=== PATIENT | male | born 1990 | race African-American/Black ===

== ENCOUNTER 2016-09-25 18:21 | Emergency (ER) | payer OTHER ==
[2016-09-25] MEDS ORDERED: cefTRIAXone SOD 1 GM VIAL (J0696) As Ordered ONE (19:28)
[2016-09-25] MEDS ORDERED: LIDOCAINE 1% MDV 20ML VIAL As Ordered ONE (19:28)
[2016-09-25] MEDS ORDERED: AZITHROMYCIN 250 MG TAB As Ordered ONE (19:28)
--- NOTE | 2016-09-25 20:01 | EDDOCDS ---
Physician Documentation [facility] Name: Damien Edge Age: 26 yrs Sex: Male : 1990 Arrival Date: 09/25/2016 Time: 18:21 Bed TR1 Private MD: [facility] Disposition: 09/25/16 19:32 Discharged to Home/Self Care. Impression: Unspecified sexually transmitted disease - Prophylaxis. - Condition is Stable. - Discharge Instructions: Sexually Transmitted Disease. - Medication Reconciliation, Local Pharmacy Hours form. - Follow up: [facility]; When: 2 - 3 days; Reason: Continuance of care. Follow up: Emergency Department; When: As needed; Reason: Worsening of conditions. - Problem is new. - Symptoms are unchanged. Historical: - Allergies: no known allergies; - Home Meds: 1. none - PMHx: none; - PSHx: Ankle Arthroplasty, Right; - Social history: Smoking status: Patient uses tobacco products, current some day smoker. No barriers to communication noted, The patient speaks fluent Kyrgyz. - Family history: Not pertinent. - : The pt / caregiver states he / she is not on anticoagulants. Home medication list is obtained from the patient. - Exposure Risk Screening:: None identified. Vital Signs: 09/25 18:22 BP 145 / 69 RA Sitting (auto/lg); Pulse 72; Resp 18; Temp 96.9(O); Pulse Ox 99% on R/A; rs6 Weight 81.19 kg / 178.99 lbs (R); Height 5 ft. 10 in. (177.80 cm) (R); Pain 0/10; 19:58 BP 126 / 67; Pulse 69; Resp 16; Temp 96.6(T); cz 18:22 Body Mass Index 25.68 (81.19 kg, 177.80 cm) rs6 MDM: 19:24 cefTRIAXone 500 mg IM once ordered. dk1 19:24 azithromycin 1 grams PO once ordered. dk1 19:26 GC & Chlamydia Amplification Ordered. EDMS 19:59 Financial registration complete. zo 20:00 [facility] Payment Agreement was scanned into [employer] and attached to record. zo Administered Medications: 19:38 Drug: cefTRIAXone 500 mg [ceftriaxone 1 gram solution for injection (500 mg)] Route: cz IM; Site: right gluteus; 19:38 Drug: azithromycin 1 grams [azithromycin 250 mg tablet (4 tabs)] Route: PO; cz Signatures: Dispatcher [employer] Chris Veliz RN RN cz Zach Castro PA-C PA-C dk1 Yumiko Tobar Mallory, RN RN ms18 The chart was reviewed and I authenticate all verbal orders and agree with the evaluation and treatment provided.Attachments: 20:00 [facility] Payment Agreement zo MTDD
--- NOTE | 2016-09-25 20:01 | EDDOCDS ---
Nurse's Notes [facility] Name: Damien Edge Age: 26 yrs Sex: Male : 1990 Arrival Date: 09/25/2016 Time: 18:21 Bed TR1 Private MD: NENayeli ARNOLD Diagnosis: Unspecified sexually transmitted disease-Prophylaxis Presentation: 09/25 18:27 Presenting complaint: Patient states: that he thinks he was exposed to and STD and ms18 wants to be checked. Adult Sepsis Screening: The patient does not have new or worsening altered mentation. Patient's respiratory rate is less than 22. Systolic blood pressure is greater than 100. Patient has a qSOFA score of 0- Negative Sepsis Screen. Suicide/Homicide risk assessment- the patient denies having any suicidal and/or homicidal ideations and does not present with any other emotional, behavioral or mental health complaints. 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 Transition of care: patient was not received from another setting of care. 18:27 Acuity: KOREY Level 4 ms18 18:27 Method Of Arrival: Walkin/Carried/Asstd ms18 Triage Assessment: 18:28 General: Appears in no apparent distress, comfortable, Behavior is appropriate for age, ms18 cooperative. Pain: Denies pain. HIV screening NA for this visit Offered previously. Neurological: No deficits noted. Respiratory: No deficits noted. : Denies burning with urination, discharge. Derm: Skin is pink, warm & dry. Historical: - Allergies: no known allergies; - Home Meds: 1. none - PMHx: none; - PSHx: Ankle Arthroplasty, Right; - Social history: Smoking status: Patient uses tobacco products, current some day smoker. No barriers to communication noted, The patient speaks fluent Uzbek. - Family history: Not pertinent. - : The pt / caregiver states he / she is not on anticoagulants. Home medication list is obtained from the patient. - Exposure Risk Screening:: None identified. Screenin:59 Screening information is obtained from the patient. Fall risk: No risks identified. cz Assistance ADL's: requires no assistance with activities of daily living. Abuse/DV Screen: The patient / caregiver reports he/she is: not in a situation that causes fear, pain or injury. Nutritional screening: No deficits noted. Advance Directives: Currently, there is no health care proxy. There is no active DNR order. There is no living will. There is no Power of Rim Turning Machine Operator. Advance directive information has not previously been placed in an [facility] medical record. home support is adequate. Assessment: 19:59 Reassessment: Patient appears in no apparent distress at this time. General: Appears in cz no apparent distress. Vital Signs: 18:22 BP 145 / 69 RA Sitting (auto/lg); Pulse 72; Resp 18; Temp 96.9(O); Pulse Ox 99% on R/A; rs6 Weight 81.19 kg (R); Height 5 ft. 10 in. (177.80 cm) (R); Pain 0/10; 19:58 BP 126 / 67; Pulse 69; Resp 16; Temp 96.6(T); cz 18:22 Body Mass Index 25.68 (81.19 kg, 177.80 cm) rs6 Vitals: 18:22 Log In Time: September 25, 2016 at 18:19. rs6 ED Course: 18:22 Patient visited by Reva Ordoñez PCA. rs6 18:22 [facility] is Private Physician. rs6 18:22 Patient moved to Waiting rs6 18:23 Patient visited by Reva Ordoñez PCA. rs6 18:23 Patient moved to Pre RCE rs6 18:27 Triage Initiated ms18 19:17 Patient moved to Triage 1 jb5 19:21 [facility] dk[facility] 19:21 Mark James DO is Attending Physician. dk1 19:21 Patient visited by Zach Castro PA-C. dk1 19:29 GC & Chlamydia Amplification Sent. ttb 19:32 [facility] is Referral Physician. dk1 19:34 Patient moved to PR2 / 26 cz 19:58 Patient moved to TR1 cz 19:59 The patient / caregiver is instructed regarding the plan of care and ED course. cz 19:59 No IV's were initiated during this patient's visit. No procedures done that require cz assistance. 20:00 [facility] Payment Agreement was scanned into [employer] and attached to record. zo Administered Medications: 19:38 Drug: cefTRIAXone 500 mg [ceftriaxone 1 gram solution for injection (500 mg)] Route: cz IM; Site: right gluteus; 19:38 Drug: azithromycin 1 grams [azithromycin 250 mg tablet (4 tabs)] Route: PO; cz Order Results: There are currently no results for this order. Outcome: 19:32 Discharge ordered by Provider. dk1 19:59 Discharge Assessment: Patient awake, alert and oriented x 3. No cognitive and/or cz functional deficits noted. Patient verbalized understanding of disposition instructions. patient administered narcotics - no. The following High Risk Discharge criteria are identified: None. Discharged to home ambulatory. Condition: stable. Discharge instructions given to patient, Instructed on discharge instructions, follow up and referral plans. Demonstrated understanding of instructions, Pt was receptive of discharge instructions/ teaching. No special radiology studies were completed. Property :Personal belongings accompany Pt. 20:00 Patient left the ED. cz Signatures: Chris Quintero, LATESHA RN Christina Lam, DYNAMICS AX SOLUTION ARCHITECT DYNAMICS AX SOLUTION ARCHITECT jb5 Zach Castro, PAHelen PA-C dk1 Yumiko Tobar Teresa, RN RN ttb Smith, Mallory, RN RN ms18 Reva Ordoñez, DYNAMICS AX SOLUTION ARCHITECT DYNAMICS AX SOLUTION ARCHITECT rs6 MTDD
--- NOTE | 2016-09-25 21:11 | EDDOCDS ---
Physician Documentation [facility] Name: Damien Edge Age: 26 yrs Sex: Male : 1990 Arrival Date: 09/25/2016 Time: 18:21 Bed TR1 Private MD: [facility] Disposition: 09/25/16 19:32 Discharged to Home/Self Care. Impression: Unspecified sexually transmitted disease - Prophylaxis. - Condition is Stable. - Discharge Instructions: Sexually Transmitted Disease. - Medication Reconciliation, Local Pharmacy Hours form. - Follow up: [facility]; When: 2 - 3 days; Reason: Continuance of care. Follow up: Emergency Department; When: As needed; Reason: Worsening of conditions. - Problem is new. - Symptoms are unchanged. Historical: - Allergies: no known allergies; - Home Meds: 1. none - PMHx: none; - PSHx: Ankle Arthroplasty, Right; - Social history: Smoking status: Patient uses tobacco products, current some day smoker. No barriers to communication noted, The patient speaks fluent Pashto. - Family history: Not pertinent. - : The pt / caregiver states he / she is not on anticoagulants. Home medication list is obtained from the patient. - Exposure Risk Screening:: None identified. Vital Signs: 09/25 18:22 BP 145 / 69 RA Sitting (auto/lg); Pulse 72; Resp 18; Temp 96.9(O); Pulse Ox 99% on R/A; rs6 Weight 81.19 kg / 178.99 lbs (R); Height 5 ft. 10 in. (177.80 cm) (R); Pain 0/10; 19:58 BP 126 / 67; Pulse 69; Resp 16; Temp 96.6(T); cz 18:22 Body Mass Index 25.68 (81.19 kg, 177.80 cm) rs6 MDM: 19:24 cefTRIAXone 500 mg IM once ordered. dk1 19:24 azithromycin 1 grams PO once ordered. dk1 19:26 GC & Chlamydia Amplification Ordered. EDMS 19:59 Financial registration complete. zo 20:00 [facility] Agreement was scanned into [employer] and attached to record. zo Administered Medications: 19:38 Drug: cefTRIAXone 500 mg [ceftriaxone 1 gram solution for injection (500 mg)] Route: cz IM; Site: right gluteus; 19:38 Drug: azithromycin 1 grams [azithromycin 250 mg tablet (4 tabs)] Route: PO; cz Signatures: Dispatcher MedHost EDChris Barrientos, LATESHA RN cz Hamlet Hernandes, Aerospace Products Sales Engineer Unit ml3 Zach Castro PA-C PAHelen dk1 Yumiko Tobar Mallory, RN RN ms18 The chart was reviewed and I authenticate all verbal orders and agree with the evaluation and treatment provided.Attachments: 20:00 [facility] Agreement zo MTDD
--- NOTE | 2016-09-25 21:11 | EDDOCDS ---
Nurse's Notes [facility] Name: Damien Edge Age: 26 yrs Sex: Male : 1990 Arrival Date: 09/25/2016 Time: 18:21 Bed TR1 Private MD: VTNayeli ARNOLD Diagnosis: Unspecified sexually transmitted disease-Prophylaxis Presentation: 09/25 18:27 Presenting complaint: Patient states: that he thinks he was exposed to and STD and ms18 wants to be checked. Adult Sepsis Screening: The patient does not have new or worsening altered mentation. Patient's respiratory rate is less than 22. Systolic blood pressure is greater than 100. Patient has a qSOFA score of 0- Negative Sepsis Screen. Suicide/Homicide risk assessment- the patient denies having any suicidal and/or homicidal ideations and does not present with any other emotional, behavioral or mental health complaints. 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 Transition of care: patient was not received from another setting of care. 18:27 Acuity: KOREY Level 4 ms18 18:27 Method Of Arrival: Walkin/Carried/Asstd ms18 Triage Assessment: 18:28 General: Appears in no apparent distress, comfortable, Behavior is appropriate for age, ms18 cooperative. Pain: Denies pain. HIV screening NA for this visit Offered previously. Neurological: No deficits noted. Respiratory: No deficits noted. : Denies burning with urination, discharge. Derm: Skin is pink, warm & dry. Historical: - Allergies: no known allergies; - Home Meds: 1. none - PMHx: none; - PSHx: Ankle Arthroplasty, Right; - Social history: Smoking status: Patient uses tobacco products, current some day smoker. No barriers to communication noted, The patient speaks fluent Yi. - Family history: Not pertinent. - : The pt / caregiver states he / she is not on anticoagulants. Home medication list is obtained from the patient. - Exposure Risk Screening:: None identified. Screenin:59 Screening information is obtained from the patient. Fall risk: No risks identified. cz Assistance ADL's: requires no assistance with activities of daily living. Abuse/DV Screen: The patient / caregiver reports he/she is: not in a situation that causes fear, pain or injury. Nutritional screening: No deficits noted. Advance Directives: Currently, there is no health care proxy. There is no active DNR order. There is no living will. There is no Power of Agriculture Professor. Advance directive information has not previously been placed in an [facility] medical record. home support is adequate. Assessment: 19:59 Reassessment: Patient appears in no apparent distress at this time. General: Appears in cz no apparent distress. Vital Signs: 18:22 BP 145 / 69 RA Sitting (auto/lg); Pulse 72; Resp 18; Temp 96.9(O); Pulse Ox 99% on R/A; rs6 Weight 81.19 kg (R); Height 5 ft. 10 in. (177.80 cm) (R); Pain 0/10; 19:58 BP 126 / 67; Pulse 69; Resp 16; Temp 96.6(T); cz 18:22 Body Mass Index 25.68 (81.19 kg, 177.80 cm) rs6 Vitals: 18:22 Log In Time: September 25, 2016 at 18:19. rs6 ED Course: 18:22 Patient visited by Reva Ordoñez PCA. rs6 18:22 [facility] is Private Physician. rs6 18:22 Patient moved to Waiting rs6 18:23 Patient visited by Reva Ordoñez PCA. rs6 18:23 Patient moved to Pre RCE rs6 18:27 Triage Initiated ms18 19:17 Patient moved to Triage 1 jb5 19:21 [facility] dk[facility] 19:21 Mark James DO is Attending Physician. dk1 19:21 Patient visited by Zach Castro PA-C. dk1 19:29 GC & Chlamydia Amplification Sent. ttb 19:32 [facility] is Referral Physician. dk1 19:34 Patient moved to PR2 / 26 cz 19:58 Patient moved to TR1 cz 19:59 The patient / caregiver is instructed regarding the plan of care and ED course. cz 19:59 No IV's were initiated during this patient's visit. No procedures done that require cz assistance. 20:00 [facility] Payment Agreement was scanned into [employer] and attached to record. zo Administered Medications: 19:38 Drug: cefTRIAXone 500 mg [ceftriaxone 1 gram solution for injection (500 mg)] Route: cz IM; Site: right gluteus; 19:38 Drug: azithromycin 1 grams [azithromycin 250 mg tablet (4 tabs)] Route: PO; cz Order Results: There are currently no results for this order. Outcome: 19:32 Discharge ordered by Provider. dk1 19:59 Discharge Assessment: Patient awake, alert and oriented x 3. No cognitive and/or cz functional deficits noted. Patient verbalized understanding of disposition instructions. patient administered narcotics - no. The following High Risk Discharge criteria are identified: None. Discharged to home ambulatory. Condition: stable. Discharge instructions given to patient, Instructed on discharge instructions, follow up and referral plans. Demonstrated understanding of instructions, Pt was receptive of discharge instructions/ teaching. No special radiology studies were completed. Property :Personal belongings accompany Pt. 20:00 Patient left the ED. cz 21:10 Patient left the ED. ml3 Signatures: Chris Quintero, RN RN cz Hamlet Hernandes, Air Carrier Maintenance Inspector Unit ml3 Christina Castillo, DATA ANALYTICS CHIEF SCIENTIST DATA ANALYTICS CHIEF SCIENTIST jb5 Zach Castro, PAHelen PA-C dk1 Yumiko Tobar Teresa, RN RN ttb Cyndee Santa RN RN ms18 Reva Ordoñez, DATA ANALYTICS CHIEF SCIENTIST DATA ANALYTICS CHIEF SCIENTIST rs6 MTDD
--- NOTE | 2016-09-27 22:11 | EDDOCDS ---
Physician Documentation [facility] Name: Damien Edge Age: 26 yrs Sex: Male : 1990 Arrival Date: 09/25/2016 Time: 18:21 Bed TR1 Private MD: [facility] Disposition: 09/25/16 19:32 Discharged to Home/Self Care. Impression: Unspecified sexually transmitted disease - Prophylaxis. - Condition is Stable. - Discharge Instructions: Sexually Transmitted Disease. - Medication Reconciliation, Local Pharmacy Hours form. - Follow up: [facility]; When: 2 - 3 days; Reason: Continuance of care. Follow up: Emergency Department; When: As needed; Reason: Worsening of conditions. - Problem is new. - Symptoms are unchanged. Historical: - Allergies: no known allergies; - Home Meds: 1. none - PMHx: none; - PSHx: Ankle Arthroplasty, Right; - Social history: Smoking status: Patient uses tobacco products, current some day smoker. No barriers to communication noted, The patient speaks fluent Japanese. - Family history: Not pertinent. - : The pt / caregiver states he / she is not on anticoagulants. Home medication list is obtained from the patient. - Exposure Risk Screening:: None identified. Vital Signs: 09/25 18:22 BP 145 / 69 RA Sitting (auto/lg); Pulse 72; Resp 18; Temp 96.9(O); Pulse Ox 99% on R/A; rs6 Weight 81.19 kg / 178.99 lbs (R); Height 5 ft. 10 in. (177.80 cm) (R); Pain 0/10; 19:58 BP 126 / 67; Pulse 69; Resp 16; Temp 96.6(T); cz 18:22 Body Mass Index 25.68 (81.19 kg, 177.80 cm) rs6 MDM: 19:24 cefTRIAXone 500 mg IM once ordered. dk1 19:24 azithromycin 1 grams PO once ordered. dk1 19:26 GC & Chlamydia Amplification Ordered. EDMS 19:59 Financial registration complete. zo 20:00 [facility] Payment Agreement was scanned into [employer] and attached to record. zo 22:48 T-Sheet-- Draft Copy was scanned into [employer] and attached to record. klr Administered Medications: 19:38 Drug: cefTRIAXone 500 mg [ceftriaxone 1 gram solution for injection (500 mg)] Route: cz IM; Site: right gluteus; 19:38 Drug: azithromycin 1 grams [azithromycin 250 mg tablet (4 tabs)] Route: PO; cz Signatures: Dispatcher [employer] Chris Veliz, RN RN cz Hamlet Hernandes, Energy Administrator Unit ml3 Zach Castro, SANJAY PAHelen dk1 Yumiko Tobar Mallory, RN RN ms18 Negrita Hdz The chart was reviewed and I authenticate all verbal orders and agree with the evaluation and treatment provided.Attachments: 20:00 [facility] Payment Agreement zo 22:48 T-Sheet-- Draft Copy klr Chart Complete MTDD
--- NOTE | 2016-09-27 22:11 | EDDOCDS ---
Nurse's Notes [facility] Name: Damien Edge Age: 26 yrs Sex: Male : 1990 Arrival Date: 09/25/2016 Time: 18:21 Bed TR1 Private MD: CONayeli ARNOLD Diagnosis: Unspecified sexually transmitted disease-Prophylaxis Presentation: 09/25 18:27 Presenting complaint: Patient states: that he thinks he was exposed to and STD and ms18 wants to be checked. Adult Sepsis Screening: The patient does not have new or worsening altered mentation. Patient's respiratory rate is less than 22. Systolic blood pressure is greater than 100. Patient has a qSOFA score of 0- Negative Sepsis Screen. Suicide/Homicide risk assessment- the patient denies having any suicidal and/or homicidal ideations and does not present with any other emotional, behavioral or mental health complaints. 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 Transition of care: patient was not received from another setting of care. 18:27 Acuity: KOREY Level 4 ms18 18:27 Method Of Arrival: Walkin/Carried/Asstd ms18 Triage Assessment: 18:28 General: Appears in no apparent distress, comfortable, Behavior is appropriate for age, ms18 cooperative. Pain: Denies pain. HIV screening NA for this visit Offered previously. Neurological: No deficits noted. Respiratory: No deficits noted. : Denies burning with urination, discharge. Derm: Skin is pink, warm & dry. Historical: - Allergies: no known allergies; - Home Meds: 1. none - PMHx: none; - PSHx: Ankle Arthroplasty, Right; - Social history: Smoking status: Patient uses tobacco products, current some day smoker. No barriers to communication noted, The patient speaks fluent Yakut. - Family history: Not pertinent. - : The pt / caregiver states he / she is not on anticoagulants. Home medication list is obtained from the patient. - Exposure Risk Screening:: None identified. Screenin:59 Screening information is obtained from the patient. Fall risk: No risks identified. cz Assistance ADL's: requires no assistance with activities of daily living. Abuse/DV Screen: The patient / caregiver reports he/she is: not in a situation that causes fear, pain or injury. Nutritional screening: No deficits noted. Advance Directives: Currently, there is no health care proxy. There is no active DNR order. There is no living will. There is no Power of Piling Cutter. Advance directive information has not previously been placed in an [facility] medical record. home support is adequate. Assessment: 19:59 Reassessment: Patient appears in no apparent distress at this time. General: Appears in cz no apparent distress. Vital Signs: 18:22 BP 145 / 69 RA Sitting (auto/lg); Pulse 72; Resp 18; Temp 96.9(O); Pulse Ox 99% on R/A; rs6 Weight 81.19 kg (R); Height 5 ft. 10 in. (177.80 cm) (R); Pain 0/10; 19:58 BP 126 / 67; Pulse 69; Resp 16; Temp 96.6(T); cz 18:22 Body Mass Index 25.68 (81.19 kg, 177.80 cm) rs6 Vitals: 18:22 Log In Time: September 25, 2016 at 18:19. rs6 ED Course: 18:22 Patient visited by Reva Ordoñez PCA. rs6 18:[address] [facility] is Private Physician. rs6 18:22 Patient moved to Waiting rs6 18:23 Patient visited by Reva Ordoñez PCA. rs6 18:23 Patient moved to Pre RCE rs6 18:27 Triage Initiated ms18 19:17 Patient moved to Triage 1 jb5 19:21 [facility] dk[facility] 19:21 Mark James DO is Attending Physician. dk1 19:21 Patient visited by Zach Castro PA-C. dk1 19:29 GC & Chlamydia Amplification Sent. ttb 19:[address] [facility] is Referral Physician. dk1 19:34 Patient moved to PR2 / 26 cz 19:58 Patient moved to TR1 cz 19:59 The patient / caregiver is instructed regarding the plan of care and ED course. cz 19:59 No IV's were initiated during this patient's visit. No procedures done that require cz assistance. 20:00 [facility] Payment Agreement was scanned into [employer] and attached to record. zo 22:48 T-Sheet-- Draft Copy was scanned into [employer] and attached to record. klr Administered Medications: 19:38 Drug: cefTRIAXone 500 mg [ceftriaxone 1 gram solution for injection (500 mg)] Route: cz IM; Site: right gluteus; 19:38 Drug: azithromycin 1 grams [azithromycin 250 mg tablet (4 tabs)] Route: PO; cz Order Results: Lab Order: GC & Chlamydia Amplification; SPEC'M 09/25/16 19:28 Test: CHLAMYDIA DNA AMPLIFICATION; Value: NEGATIVE; Range: NEGATIVE; Status: F Test: GC DNA AMPLIFICATION; Value: NEGATIVE; Range: NEGATIVE; Status: F Outcome: 19:32 Discharge ordered by Provider. dk1 19:59 Discharge Assessment: Patient awake, alert and oriented x 3. No cognitive and/or cz functional deficits noted. Patient verbalized understanding of disposition instructions. patient administered narcotics - no. The following High Risk Discharge criteria are identified: None. Discharged to home ambulatory. Condition: stable. Discharge instructions given to patient, Instructed on discharge instructions, follow up and referral plans. Demonstrated understanding of instructions, Pt was receptive of discharge instructions/ teaching. No special radiology studies were completed. Property :Personal belongings accompany Pt. 20:00 Patient left the ED. cz 21:10 Patient left the ED. ml3 Signatures: Chris Quintero, RN RN cz Mehdi Hernandeszabeth, Control Room Agent Unit ml3 Christina Castillo, VIOLIN TEACHER VIOLIN TEACHER jb5 Zach Castro PAHelen PA-C dk1 Yumiko Tobar Teresa, RN RN Cyndee Donnelly RN RN ms18 Reva Ordoñez, VIOLIN TEACHER VIOLIN TEACHER rs6 Negrita Hdz Chart Complete MTDD
--- NOTE | 2016-09-27 22:11 | EDDOCDS ---
Physician Documentation [facility] Name: Damien Edge Age: 26 yrs Sex: Male : 1990 Arrival Date: 09/25/2016 Time: 18:21 Bed TR1 Private MD: [facility] [place] Disposition: 09/25/16 19:32 Discharged to Home/Self Care. Impression: Unspecified sexually transmitted disease - Prophylaxis. - Condition is Stable. - Discharge Instructions: Sexually Transmitted Disease. - Medication Reconciliation, Local Pharmacy Hours form. - Follow up: [facility]; When: 2 - 3 days; Reason: Continuance of care. Follow up: Emergency Department; When: As needed; Reason: Worsening of conditions. - Problem is new. - Symptoms are unchanged. Historical: - Allergies: no known allergies; - Home Meds: 1. none - PMHx: none; - PSHx: Ankle Arthroplasty, Right; - Social history: Smoking status: Patient uses tobacco products, current some day smoker. No barriers to communication noted, The patient speaks fluent Tajik. - Family history: Not pertinent. - : The pt / caregiver states he / she is not on anticoagulants. Home medication list is obtained from the patient. - Exposure Risk Screening:: None identified. Vital Signs: 09/25 18:22 BP 145 / 69 RA Sitting (auto/lg); Pulse 72; Resp 18; Temp 96.9(O); Pulse Ox 99% on R/A; rs6 Weight 81.19 kg / 178.99 lbs (R); Height 5 ft. 10 in. (177.80 cm) (R); Pain 0/10; 19:58 BP 126 / 67; Pulse 69; Resp 16; Temp 96.6(T); cz 18:22 Body Mass Index 25.68 (81.19 kg, 177.80 cm) rs6 MDM: 19:24 cefTRIAXone 500 mg IM once ordered. dk1 19:24 azithromycin 1 grams PO once ordered. dk1 19:26 GC & Chlamydia Amplification Ordered. EDMS 19:59 Financial registration complete. zo 20:00 [facility] Payment Agreement was scanned into [employer] and attached to record. zo 22:48 T-Sheet-- Draft Copy was scanned into [employer] and attached to record. klr Administered Medications: 19:38 Drug: cefTRIAXone 500 mg [ceftriaxone 1 gram solution for injection (500 mg)] Route: cz IM; Site: right gluteus; 19:38 Drug: azithromycin 1 grams [azithromycin 250 mg tablet (4 tabs)] Route: PO; cz Signatures: Dispatcher [employer] Chris Veliz, RN RN cz [place]andes, Dock Operator Unit ml3 Zach Castro, SANJAY PAHelen dk1 Yumiko Tobar Mallory, RN RN [id number] Negrita Hdz The chart was reviewed and I authenticate all verbal orders and agree with the evaluation and treatment provided.Attachments: 20:00 [facility] Payment Agreement zo 22:48 T-Sheet-- Draft Copy klr Chart Complete MTDD
== END 2016-09-25 21:10 | disposition home or self-care (01) ==
LOC: M ED 18:21
DX: Z20.2 Contact with and (suspected) exposure to infections with a predominantly sexual mode of transmission (principal); F17.210 Nicotine dependence, cigarettes, uncomplicated
CPT/HCPCS: 87491; 87591; 96372; 99283; J0696

== ENCOUNTER 2017-01-18 02:08 | Emergency (ER) | payer OTHER, SELFPAY ==
[~2017-01-18] VITALS: Ht 177.8 cm; Wt 81.6 kg
[2017-01-18 02:30] VITALS: BP 131/67
[2017-01-18] MEDS ORDERED: AZITHROMYCIN 250 MG TAB PO ONE (03:15)
== END 2017-01-18 03:50 | disposition home or self-care (01) ==
LOC: M ED 03:16
DX: Z20.2 Contact with and (suspected) exposure to infections with a predominantly sexual mode of transmission (principal); F17.200 Nicotine dependence, unspecified, uncomplicated